=== PATIENT | female | born 1940 | race Caucasian/White ===

== ENCOUNTER 2017-07-28 05:57 | Emergency (ER) | payer MEDICARE, OTHER ==
[2017-07-28 06:39] LABS: Hematocrit 39.3 % (37.0-47.0); Hemoglobin 12.8 gm/dL (12.5-16.0); Mean Cell Volume 89.7 fl (78-100); Mean Corpuscular Hemoglobin 29.2 pg (27-31); Mean Corpuscular Hgb Conc 32.6 g/dl (32-36); Mean Platelet Volume 10.4 fl (6.0-9.5); Neutrophil # 3.3 K/mm3 (1.3-6.0); Neutrophil % 66.6 % (42-75.0); Platelet Count 164 K/mm3 (150-450); Red Blood Count 4.38 M/mm3 (4.2-5.4); Red Cell Distribution Width 11.9 % (11.5-14.0)
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
[2017-07-28 06:59] LABS: Albumin * 3.4 gm/dl (3.4-5.0); Anion Gap 9.4 mmol/L (6.8-13.8); BUN/Creatinine Ratio 22.7 (9.0-21.6); Bilirubin, Total 0.5 mg/dL (0.0-1.1); Ca. Corrected For Albumin 8.6 mg/dL (8.4-10.2); Calcium * 8.4 mg/dL (7.9-10.9); Carbon Dioxide 29.2 mmol/L (24-32.6); Potassium 3.6 mmol/L (3.4-4.6); Total Protein 6.3 gm/dL (6.2-8.2)
[2017-07-28 07:05] LABS: Urine Bacteria 2+; Urine RBC None Seen /hpf (0-5)
[2017-07-28 08:30] VITALS: BP 136/52
== END 2017-07-28 07:53 | disposition home or self-care (01) ==
LOC: ER 05:57
DX: N30.01 Acute cystitis with hematuria (principal); E86.0 Dehydration; Z87.440 Personal history of urinary (tract) infections; E78.5 Hyperlipidemia, unspecified